=== PATIENT | male | born 1995 | race Hispanic/Latino ===

== ENCOUNTER 2018-02-22 18:05 | Emergency (ER) | payer BC, SELFPAY ==
[2018-02-22] MEDS ORDERED: predniSONE 20 MG TAB ONE (18:40)
== END 2018-02-22 18:43 | disposition home or self-care (01) ==
LOC: ERS 18:05
DX: L23.7 Allergic contact dermatitis due to plants, except food (principal)
CPT/HCPCS: 99282; J7506

== ENCOUNTER 2018-12-03 17:06 | Emergency (ER) | payer SELFPAY | END 2018-12-03 17:25 | disposition home or self-care (01) | LOC: ERS 17:06 | DX: L74.0 Miliaria rubra (principal); G40.909 Epilepsy, unspecified, not intractable, without status epilepticus | CPT/HCPCS: 99283 ==

== ENCOUNTER 2019-01-23 08:57 | Emergency (ER) | payer SELFPAY | END 2019-01-23 09:20 | disposition home or self-care (01) | LOC: ERS 08:57 | DX: L25.9 Unspecified contact dermatitis, unspecified cause (principal); G40.909 Epilepsy, unspecified, not intractable, without status epilepticus | CPT/HCPCS: 99282 ==

== ENCOUNTER 2019-01-24 15:11 | Emergency (ER) | payer SELFPAY | END 2019-01-24 15:34 | disposition home or self-care (01) | LOC: ERS 15:11 | DX: L23.7 Allergic contact dermatitis due to plants, except food (principal); G40.909 Epilepsy, unspecified, not intractable, without status epilepticus; Z79.899 Other long term (current) drug therapy | CPT/HCPCS: 99282 ==

== ENCOUNTER 2022-08-20 14:07 | Emergency (ER) | payer SELFPAY ==
[~2022-08-20 14:07] MED LIST: Iopamidol 370 76% 100 ML VIAL ONE
[2022-08-20] MEDS ORDERED: Ondansetron ODT 4 MG TAB ONE (14:19)
[2022-08-20] MEDS ORDERED: Morphine 4 MG/ML VIAL ONE (14:19)
[2022-08-20 14:34] LABS: #Basophils 0.1 thou/uL (0.0-0.2); #Eosinphils 0.1 thou/uL (0.0-0.7); #Monocytes 0.5 thou/uL (0.11-0.59); %Basophils 0.9 % (0.0-1.0); %Eosinophils 0.9 % (0.0-10.0); %Lymphocytes 31.5 % (21.0-51.0); %Monocytes 7.3 % (0.0-10.0); %Neutrophils 59.3 % (42.0-75.0); Hemoglobin 14.7 g/dL (14.0-18.0); Mean Corpuscular HGB CONC 34.8 g/dL (32.0-36.0); Mean Corpuscular Hemoglobin 29.9 pg (27.0-31.0); Mean Corpuscular Volume 85.9 fl (78.0-98.0); Mean Platelet Volume 8.9 fL (7.4-10.4); Platelet Count 415 10x3/uL (130-400); RBC Distribution Width 12.1 % (11.5-14.5); Red Blood Cell (RBC) Count 4.91 mill/uL (4.70-6.10); White Blood Cell (WBC) Count 6.7 10x3/uL (4.8-10.8)
[2022-08-20 14:59] LABS: ALT (SGPT) 18 U/L (8-55); AST (SGOT) 21 U/L (5-34); Albumin 4.4 g/dL (3.5-5.0); Alkaline Phosphatase 86 U/L (40-110); Anion Gap 13 mmol/L (10-20); BUN (Urea Nitrogen) 10 mg/dL (8.9-20.6); Bilirubin, Total 0.4 mg/dL (0.2-1.2); Calc. Creatinine Clearance 0 mL/min (70-130); Calcium 9.3 mg/dL (7.8-10.44); Carbon Dioxide 25 mmol/L (22-29); Chloride 104 mmol/L (98-107); Estimated GFR 107; Globulin 2.9 g/dL (2.4-3.5); Glucose 109 mg/dL (70-105); Lipase 41 U/L (8-78); Potassium 3.5 mmol/L (3.5-5.1); Protein, Total 7.3 g/dL (6.0-8.3); Sodium 138 mmol/L (136-145)
[2022-08-20 15:22] LABS: Bilirubin Negative (Negative); Blood, Urine Negative (Negative); Clarity Clear (Clear); Glucose, Urine (Dipstick) Normal (Negative); Ketone, Urine Negative (Negative); Leukocyte Negative Leu/uL (Negative); Nitrite Negative (Negative); Protein, Urine (Dipstick) Negative (Neg-Trace); Specific Gravity, Urine 1.011 (1.002-1.036); Urobilinogen Normal mg/dL (Less than 2)
== END 2022-08-20 17:30 | disposition home or self-care (01) ==
LOC: ERS 14:07
DX: R10.31 Right lower quadrant pain (principal); I10 Essential (primary) hypertension; D18.01 Hemangioma of skin and subcutaneous tissue
CPT/HCPCS: 74177; 80053; 81003; 83690; 85025; 96374; J2270; Q0162; Q9967